=== PATIENT | male | born 1990 | race Caucasian/White ===

== ENCOUNTER 2020-06-17 09:20 | Outpatient (CLI) | payer BC ==
--- NOTE | 2020-06-17 09:43 | RAD ---
2 VIEW CHEST: Date: 06/17/2020 HISTORY: Bronchitis. FINDINGS: Lung chavez appear clear. No infiltrate identified. Heart and mediastinum unremarkable. Osseous struc tures unremarkable. IMPRESSION: No acute process identified. POS: [id number]
== END 2020-06-17 09:21 | disposition home or self-care (01) ==
LOC: BICRAD 09:20
PROVIDERS: ATTEND Family Medicine
DX: J20.9 Acute bronchitis, unspecified (principal)
CPT/HCPCS: 36415; 71046; 80053; 81003; 82175; 83655; 83825; 85025; 87086